=== PATIENT | male | born 1940 | race Caucasian/White ===

== ENCOUNTER → 2018-04-02 | Emergency (ER) | payer MEDICARE, BC ==
[~2018-04-02] VITALS: Ht 175.3 cm; Wt 93.6 kg
[~2018-04-02] MED LIST: BISOPROLOL-HCTZ; FLEXERIL10 MG PO; LORTAB 5/500 501 TAB PO; NAPROSYN PO
[2018-04-02 12:22] VITALS: TEMP 96.7
[2018-04-02 12:46] LABS: BASO # 0.1 (0.0-0.2); BASO % 0.5 % (0.0-2.0); EOS # 0.3 (0.0-0.7); EOS % 2.5 % (0-4.0); GRAN # 9.9 (1.4-6.5); GRAN % 73.9 % (42.2-75.2); HEMATOCRIT 46.8 % (42.0-52.0); HEMOGLOBIN 15.6 g/dl (13.5-18.0); LYMPH # 2.1 (1.2-3.4); LYMPH % 15.8 % (20.0-51.0); MEAN CELL VOLUME 90 fl (80.0-100.0); MEAN CORPUSCULAR HEMOGLOBIN 30 pg (27.0-31.0); MEAN CORPUSCULAR HGB CONC 33 g/dl (33.0-37.0); MEAN PLATELET VOLUME 10.2 fl (7.4-10.4); MONO # 0.9 (0.1-0.6); MONO % 6.9 % (1.7-9.3); PLATELET COUNT 207 K/mm3 (130-400); RED BLOOD COUNT 5.22 M/mm3 (4.20-5.60); REDCELL DISTRIBUTION WIDTH-CV 13.4 % (11.5-14.5)
[2018-04-02 12:58] LABS: ALBUMIN 4.5 gm/dL (3.5-5.0); BILIRUBIN,TOTAL 0.5 mg/dL (0.0-1.0); CALCIUM 9.2 mg/dL (8.4-10.2); CREATININE, serum 0.94 mg/dL (0.66-1.25); TOTAL PROTEIN 7.9 gm/dL (6.4-8.2)
[2018-04-02 13:15] LABS: TROPONIN-I 0.077 ng/mL (0.000-0.034)
[2018-04-02 13:45] VITALS: BP 141/101; PULSE 64
[2018-04-02 13:47] LABS: INR 0.9 (0.8-3.0); PROTHROMBIN TIME 10.6 SECONDS (9.7-12.8)
[2018-04-02 13:49] LABS: PARTIAL THROMBOPLASTIN TIME 34.8 SECONDS (26.0-37.0)
== END ==
LOC: COL.ER 12:15
PROVIDERS: Emergency Medicine
DX: I21.09 ST elevation (STEMI) myocardial infarction involving other coronary artery of anterior wall (principal); I49.01 Ventricular fibrillation; I10 Essential (primary) hypertension
CPT/HCPCS: J0282; J1644; J3101; J7030; J7060

== ENCOUNTER 2020-08-05 19:32 | Emergency (ER) | payer OTHER, MEDICARE, BC ==
[~2020-08-05] VITALS: Ht 177.8 cm; Wt 90.9 kg
[2020-08-05 21:25] VITALS: BP 192/97; PULSE 62; TEMP 98.3
== END 2020-08-05 21:25 | disposition home or self-care (01) ==
LOC: COL.ER 19:32
DX: S09.90XA Unspecified injury of head, initial encounter (principal); S00.03XA Contusion of scalp, initial encounter; I25.2 Old myocardial infarction; F17.210 Nicotine dependence, cigarettes, uncomplicated; Z79.82 Long term (current) use of aspirin; Z79.02 Long term (current) use of antithrombotics/antiplatelets; V89.2XXA Person injured in unspecified motor-vehicle accident, traffic, initial encounter

== ENCOUNTER 2020-08-17 13:55 | Emergency (ER) | payer MEDICARE, BC ==
[~2020-08-17] VITALS: Ht 177.8 cm; Wt 90.9 kg
[2020-08-17 15:25] VITALS: BP 177/93; PULSE 55; TEMP 97.6
== END 2020-08-17 15:30 | disposition home or self-care (01) ==
LOC: COL.ER 13:55
DX: I10 Essential (primary) hypertension (principal)

== ENCOUNTER → 2020-10-17 | Outpatient (CLI) | payer MEDICARE, BC | LOC: COL.RAD 12:24 | DX: R91.8 Other nonspecific abnormal finding of lung field (principal); Q61.3 Polycystic kidney, unspecified; K86.1 Other chronic pancreatitis | CPT/HCPCS: Q9967 ==

== ENCOUNTER → 2020-10-25 | Outpatient (CLI) | payer MEDICARE, BC | LOC: COL.RAD 11:00 | DX: J43.9 Emphysema, unspecified (principal); R91.8 Other nonspecific abnormal finding of lung field | CPT/HCPCS: Q9967 ==

== ENCOUNTER → 2021-10-14 | Outpatient (CLI) | payer MEDICARE, BC | LOC: COL.RAD 09:37 | DX: J43.9 Emphysema, unspecified (principal); I25.10 Atherosclerotic heart disease of native coronary artery without angina pectoris; R91.8 Other nonspecific abnormal finding of lung field | CPT/HCPCS: Q9967 ==

== ENCOUNTER → 2022-01-12 | Outpatient (CLI) | payer OTHER, MEDICARE, BC | LOC: COL.RAD 07:14 | DX: S09.90XA Unspecified injury of head, initial encounter (principal); X58.XXXA Exposure to other specified factors, initial encounter ==

== ENCOUNTER 2024-03-13 14:06 | Emergency (ER) | payer MEDICARE, BC ==
[~2024-03-13] VITALS: Ht 175.3 cm; Wt 100.0 kg
[2024-03-13 19:00] VITALS: TEMP 98.2
[2024-03-13 20:20] VITALS: BP 190/99; PULSE 60
== END 2024-03-13 20:20 | disposition home or self-care (01) ==
LOC: COL.ER 14:06
DX: M25.562 Pain in left knee (principal); M25.552 Pain in left hip; F17.200 Nicotine dependence, unspecified, uncomplicated; W18.39XA Other fall on same level, initial encounter